=== PATIENT | male | born 1980 | race Caucasian/White ===

== ENCOUNTER 2016-05-06 12:24 | Emergency (ER) | payer MEDICAID ==
[2016-05-06] MEDS ORDERED: Ibuprofen 200 MG TAB ONE (13:55)
== END 2016-05-06 14:25 | disposition home or self-care (01) ==
LOC: ER 12:24
DX: S93.432A Sprain of tibiofibular ligament of left ankle, initial encounter (principal); S90.02XA Contusion of left ankle, initial encounter; W01.0XXA Fall on same level from slipping, tripping and stumbling without subsequent striking against object, initial encounter; Y92.019 Unspecified place in single-family (private) house as the place of occurrence of the external cause